=== PATIENT | male | born 1970 | race Caucasian/White ===

== ENCOUNTER 2019-05-28 17:26 | Emergency (ER) | payer OTHER ==
[~2019-05-28] VITALS: Ht 185.4 cm; Wt 169.6 kg
[~2019-05-28 17:26] MED LIST: Z DILTIAZEM PO
--- NOTE | 2019-05-28 18:19 | NUR ---
US CALLED 45MIN ETA,
--- NOTE | 2019-05-28 18:41 | NUR ---
REPORT TO PETER HERNÁNDEZ
--- NOTE | 2019-05-28 19:58 | Diagnostic Imaging Report ---
EXAM: Left Lower Extremity Duplex Ultrasound INDICATION: Leg redness ^20190528 ^1920 COMPARISON: None TECHNIQUE: Hutchinson scale, color Doppler and spectral waveform analysis of the left lower extremity deep venous system was performed. FINDINGS: Common Femoral: Fully compressible with normal spontaneous waveforms. Proximal Greater Saphenous: Fully compressible. Femoral: Fully compressible with normal spontaneous waveforms. Normal response to augmentation. Proximal Deep Femoral: Normal spontaneous waveforms. Popliteal: Fully compressible with normal spontaneous waveforms. Other: Below the knee over the anterior delacruz there are several subcutaneous avascular well-defined fluid collections. Each of these collections measures approximately 5 to 6 mm diameter. IMPRESSION: 1. No evidence of deep venous thrombosis above the left calf. 2. Subcutaneous rounded avascular fluid collections below the knee in the anterior soft tissues of the leg may represent manifestations of edema. In the proper clinical setting, these may represent cellulitis or phlegmonous collections. Signed by: Dr. Kaden Paez M.D. on 05/28/2019 7:54 PM
[2019-05-28] MEDS ORDERED: NAPROSYN500 MG PO (20:11)
--- OUTSIDE RECORDS SUMMARY | 2019-05-30 14:00 | XMS REPORT | Encounter Summary ---
Author Organization Unknown Address [address] [place] [address] Phone [phone] Care Team Providers Care Review Consultant Name Role Phone Dr. Inder Castellanos 3 [phone] Reason for Visit Hypertensive disorder Instructions 1. Hypertensive disorder Cartia XT 240 mg capsule,extended release electrocardiogram 2. Hyperlipidemia CMP, serum or plasma lipid panel, serum high cholesterol: care instructions 3. Immunization 4. Electrocardiogram abnormal cardiology referral - *Please call the patient and make an appointment* PLEASE SEND BACK CONSULT NOTES TO [phone] 5. Body mass index 40+ - severely obese body mass index: care instructions learning about healthy weight Discussion Note: None recorded. Plan of Care Reminders Provider Appointments Return to Office on or around 06/25/2019 Inder Leslie MD Lab CMP, Serum or Plasma 12/23/2018 [facility] Lipid Panel, Serum 12/23/2018 [facility] Referral Cardiology Referral 12/23/2018 Guillermo Yadav MD Procedures None recorded. Surgeries None recorded. Imaging Electrocardiogram 12/23/2018 [facility] ([facility] [place] Medications Name Start Date Cartia XT 240 mg capsule,extended release Take 2 capsules every day by oral route for 90 days. Medications Administered None recorded. Vitals Height Weight BMI Blood Pressure 6 ft 1 in 363 lbs 47.9 kg/m2 (1) 158/98 mm[Hg] (2) 136/84 mm[Hg] Lab Results Date Name Specimen Result Interpretation Description Value Range Status Address Electrocardiogram No observation recorded. [facility] ([facility] [place]: [address] [place] [address] Allergies Code Code System Name Reaction Severity Status Onset NKDA Problems Name Status Onset Date Source Lipoma (Clinical) Active 11/04/2016 Hypertensive Disorder Active 11/04/2016 Chronic Back Pain Active 11/04/2016 Mixed Hyperlipidemia Active 10/31/2017 Body Mass Index 40+ - Severely Obese Active 10/31/2017 Procedures Date Name Performed by 08/09/2016 Dental Surgery Procedure Information not available 06/11/2011 Cholecystectomy (Gall Bladder Removal) Information not available 12/23/2018 Electrocardiogram [facility] ([facility] [place] [address] [place] [address] (Work Place) Vaccine List None recorded. Social History Smoking Status Former Smoker (1/2 PPD) Past Encounters 12/23/2018 Hypertensive Disorder; Hyperlipidemia; Immunization; Electrocardiogram Abnormal; Body Mass Index 40+ - Severely Obese Inder Leslie MD: [address] [place] [address], Ph. History of Present Illness Note:F/u on htn and HLD. Needs refills. Non compliant with meds (ran out of cartia 2 days ago). Non compliant with diet or exercise. Not checking BPs at home. No side effects with the medication. No new concerns. Review of Systems Comprehensive General Adult ROS Reported By: Patient Constitutional: Constitutional: no fever Eyes: Eyes: no vision change ENMT: Ears: no ear pain. Nose: no sinus problems. Mouth/Throat: no sore throat Cardiovascular: Cardiovascular: no chest pain, no palpitations, no lightheadedness Respiratory: Respiratory: no cough, no wheezing, no shortness of breath Gastrointestinal: Gastrointestinal: no abdominal pain, no nausea, no vomiting, no constipation, no diarrhea Musculoskeletal: Musculoskeletal: no muscle aches, no swelling in the extremities Integumentary: Skin: no rashes Neurologic: Neurologic: no loss of consciousness, no headaches Psychiatric: Psych: no depression, no alcohol abuse, no anxiety, no suicidal thoughts Endocrine: Endocrine: no fatigue Physical Exam General Adult Exam (male) Reported By: Patient Constitutional: General Appearance: healthy-appearing, morbidly obese. Level of Distress: NAD. Ambulation: ambulating normally Psychiatric: Insight: good judgement. Mental Status: active and alert, normal mood, normal affect. Orientation: to time, to place, to person. Memory: recent memory normal, remote memory normal Eyes: Lids and Conjunctivae: non-injected, no discharge ENMT: Ears: TMs clear. Nose: no sinus tenderness. Lips, Teeth, and Gums: no mouth or lip ulcers. Oropharynx: moist mucous membranes Neck: Neck: supple, trachea midline. Thyroid: no enlargement, non-tender Lungs: Auscultation: breath sounds normal Cardiovascular: Heart Auscultation: RRR, normal S1, normal S2, no murmurs. Neck vessels: no carotid bruits Abdomen: Inspection and Palpation: soft, non-distended, no tenderness, no guarding Musculoskeletal:: Motor Strength and Tone: normal, normal tone. Joints, Bones, and Muscles: normal movement of all extremities. Extremities: no edema Neurologic: Gait and Station: normal gait. Cranial Nerves: grossly intact. Coordination and Cerebellum: no tremor Skin: Inspection and palpation: no rash, no lesions
--- OUTSIDE RECORDS SUMMARY | 2019-05-30 14:00 | XMS REPORT | Encounter Summary ---
Author Organization Unknown Address [address] [place] [address] Phone [phone] Care Team Providers Care Sewer Pipe Press Operator Name Role Phone Dr. Inder Castellanos 3 [phone] Reason for Visit Hypertensive disorder Instructions 1. Hypertensive disorder Cartia XT 240 mg capsule,extended release electrocardiogram 2. Hyperlipidemia CMP, serum or plasma lipid panel, serum high cholesterol: care instructions 3. Immunization 4. Electrocardiogram abnormal cardiology referral - *Please call the patient and make an appointment* PLEASE SEND BACK CONSULT NOTES TO [phone] 5. Body mass index 40+ - severely obese body mass index: care instructions learning about healthy weight Discussion Note: None recorded. Plan of Care Reminders Provider Appointments Return to Office on or around 06/25/2019 Inder Leslie MD Lab CMP, Serum or Plasma 12/23/2018 [facility] Laboratory Lipid Panel, Serum 12/23/2018 [facility] Laboratory Referral Cardiology Referral 12/23/2018 Guillermo Yadav MD Procedures None recorded. Surgeries None recorded. Imaging Electrocardiogram 12/23/2018 [facility] ([facility]) [place] Medications Name Start Date Cartia XT 240 mg capsule,extended release Take 2 capsules every day by oral route for 90 days. Medications Administered None recorded. Vitals Height Weight BMI Blood Pressure 6 ft 1 in 363 lbs 47.9 kg/m2 (1) 158/98 mm[Hg] (2) 136/84 mm[Hg] Lab Results Date Name Specimen Result Interpretation Description Value Range Status Address Electrocardiogram No observation recorded. [facility] ([facility]) [place]: [address] [place] [address] Allergies Code Code System Name Reaction Severity [...] Bladder Removal) Information not available 12/23/2018 Electrocardiogram [facility] ([facility] [place] [address] [place] [address] (Work Place) Vaccine List None recorded. Social History Smoking Status Former Smoker (1/2 PPD) Past Encounters 12/23/2018 Hypertensive Disorder; Hyperlipidemia; Immunization; Electrocardiogram Abnormal; Body Mass Index 40+ - Severely Obese Inder Leslie MD: [address] [place] [address], Ph. History of Present Illness Note:F/u on htn and HLD. Needs refills. Non compliant with meds (ran out of cartia 2 days ago). Non compliant with diet or exercise. Not checking BPs at home. No side effects with medication. No new concerns. Review of Systems [...]
--- OUTSIDE RECORDS SUMMARY | 2019-05-30 14:00 | XMS REPORT ---
Author Author [facility] Address Unknown Phone Unavailable Care Team Providers Care Spinning Doffer Name Role Phone JOE FINK Unavailable Unavailable Problems This patient has no known problems. Allergies, Adverse Reactions, Alerts This patient has no known allergies or adverse reactions. Medications This patient has no known medications. Results Test Description Test Time Test Comments Text Results Atomic Results Result Comments LOW EXT VEINS LIMITED UNI 2019-05-28 19:50:00 [place] [id number] [place] [address] Patient Name: LIYA BENITEZ MR #: [id number] : 1970 Age/Sex: 48/M Req #: [id number] Adm Physician: Ordered by: JOE FINK MD Report #: [id number] Location: [facility] Room/Bed: Procedure: [id number] HOPD/US LOW EXT VEINS LIMITED UNI Exam Date: 05/28/19 Exam Time: 1919 REPORT STATUS: Signed EXAM: Left Lower Extremity Duplex Ultrasound INDICATION: Leg redness [id number] COMPARISON: None TECHNIQUE: Hutchinson scale, color Doppler and spectral waveform analysis of the left lower extremity deep venous system was performed. FINDINGS: Common Femoral: Fully compressible with normal spontaneous waveforms. Proximal Greater Saphenous: Fully compressible. Femoral: Fully compressible with normal spontaneous waveforms. Normal response to augmentation. Proximal Deep Femoral: Normal spontaneous waveforms. Popliteal: Fully compressible with normal spontaneous waveforms. Other: Below the knee over the anterior delacruz there are several subcutaneous avascular well- defined fluid collections. Each of these collections measures approximately 5 to 6 mm diameter. IMPRESSION: 1. No evidence of deep venous thrombosis above the left calf. 2. Subcutaneous rounded avascular fluid collections below the knee in the anterior soft tissues of the leg may r epresent manifestations of edema. In the proper clinical setting, these may represent cellulitis or phlegmonous collections. Signed by: Dr. Michael Cobb M.D. on 05/28/2019 7:54 PM Dictated By: MICHAEL COBB MD 53 Transcribed By: MIMI on 05/28/191953 COPY TO: JOE FINK MD
--- OUTSIDE RECORDS SUMMARY | 2019-05-30 14:00 | XMS REPORT | Encounter Summary ---
Author Organization Unknown Address [address] [place] [address] Phone [phone] Care Team Providers Care Health Information Managers Name Role Phone Dr. Inder Castellanos 3 [phone] Reason for Visit Hypertensive disorder; rash Instructions 1. Herpes zoster valacyclovir 1 gram tablet prednisone 20 mg tablet 2. Hypertensive disorder diltiazem CD 360 mg capsule,extended release 24 hr 3. Influenza vaccination declined 4. Body mass index 40+ - severely obese body mass index: care instructions learning about healthy weight Discussion Note: None recorded. Plan of Care Reminders Provider Appointments None recorded. Lab None recorded. Referral None recorded. Procedures None recorded. Surgeries None recorded. Imaging None recorded. Medications Name Start Date diltiazem CD 360 mg capsule,extended release 24 hr Take 1 capsule twice a day by oral route for 30 days. prednisone 20 mg tablet Take 2 tablets every day by oral route for 5 days. valacyclovir 1 gram tablet Take 1 tablet every 12 hours by oral route for 7 days. Medications Administered None recorded. Vitals Height Weight BMI Blood Pressure 6 ft 1 in 369.4 lbs 48.7 kg/m2 140/88 mm[Hg] Results Lab Results None recorded. Allergies Code Code System Name Reaction Severity Status Onset NKDA Problems Name Status Onset Date Source Lipoma (Clinical) Active 11/04/2016 Hypertensive Disorder Active 11/04/2016 Chronic Back Pain Active 11/04/2016 Mixed Hyperlipidemia Active 10/31/2017 Body Mass Index 40+ - Severely Obese Active 10/31/2017 Procedures Date Name Performed by 08/09/2016 Dental Surgery Procedure Information not available 06/11/2011 Cholecystectomy (Gall Bladder Removal) Information not available Vaccine List None recorded. Social History Tobacco Smoking Status Former Smoker (1/2 PPD) Past Encounters 05/19/2019 Herpes Zoster; Hypertensive Disorder; Influenza Vaccination Declined; Body Mass Index 40+ - Severely Obese Leroy Schaefer, DO: [facility] [place] [address], Ph. History of Present Illness Note:1) RASH<div>- first noticed small bump that started 5 days ago on corner of left eye. That lesion resolved but new rash appear on left shoulder and left upper back. Rash has red base with elevated bumps. It is painful and itchy. Has not tried OTC medication. Denies prior history of shingles but chicken pox as kid. <div>
</div><div>2) HTN
- current med(s): Diltiazem CD 360mg
- medication compliance: {{daily*|somewhat daily|none}}
- home BP range: {{none#|>200|180s|170s|160s|150s|140s|130s|120s|110s|100s|90s|80s|70s}}
- adverse reactions: {{yes|no*}}
- diet and exercise: {{yes|no*}}
- Denies: {{HAs, CP, SOB, LE Swelling #|HAs|CP|SOB|acute visual changes|leg swel ling|none}}
- Endorses: {{HAs|CP|SOB|acute visual changes|leg swelling|none*}}

</div></div> Review of Systems Comprehensive General Adult ROS Reported By: Patient Constitutional: Constitutional: no fever Cardiovascular: Cardiovascular: no chest pain, no shortness of breath when walking Respiratory: Respiratory: no cough, no wheezing, no shortness of breath Gastrointestinal: Gastrointestinal: no abdominal pain, no nausea, no vomiting, no constipation, no diarrhea Musculoskeletal: Musculoskeletal: no muscle aches, no muscle weakness, no arthralgias/joint pain, no swelling in the extremities Integumentary: Skin: rash Physical Exam General Adult Exam (male) Reported By: Patient Constitutional: General Appearance: healthy-appearing, well-developed, morbidly obese. Level of Distress: NAD. Ambulation: ambulating normally Cardiovascular: Heart Auscultation: RRR, normal S1, normal S2, no murmurs, no rubs, no gallops Abdomen: Bowel Sounds: normal. Inspection and Palpation: soft, non-distended, no tenderness, no guarding Musculoskeletal:: Motor Strength and Tone: normal, normal tone. Joints, Bones, and Muscles: normal movement of all extremities. Extremities: no edema Skin: Inspection and palpation: rash, lesion"
== END 2019-05-28 20:33 | disposition home or self-care (01) ==
LOC: FSED 17:26
DX: M79.605 Pain in left leg (principal); I80.02 Phlebitis and thrombophlebitis of superficial vessels of left lower extremity
CPT/HCPCS: 93971; 99283

== ENCOUNTER → 2021-12-30 | Day surgery (SDC) | payer OTHER ==
[~2021-12-30] MED LIST changes: +BP MED PO; +GLUCAGON FOR INJ 1 MG VIAL ONE; +HYOSCYAMINE SULFATE 0.5 MG/ML INJ ONE; +LIDOCAINE HCL 2% LOCAL INJ 5 ML SDV VIAL INJ ONE; +NAPROSYN500 MG PO; +ONDANSETRON HCL INJ 2MG/ML 2ML 2 MG/ML VIAL ONE; +PROPOFOL IV EMULSION 10 MG/ML 20 ML VIAL ONE
[2021-12-30 10:20] VITALS: BP 107/63
== END | disposition home or self-care (01) ==
LOC: OR 08:02
PROVIDERS: ATTEND Internal Medicine Gastroenterology
DX: R19.5 Other fecal abnormalities (principal); D12.0 Benign neoplasm of cecum; D12.3 Benign neoplasm of transverse colon; K64.8 Other hemorrhoids; Z71.3 Dietary counseling and surveillance; I10 Essential (primary) hypertension; E66.01 Morbid (severe) obesity due to excess calories; Z01.810 Encounter for preprocedural cardiovascular examination; Z01.812 Encounter for preprocedural laboratory examination; Z20.822 Contact with and (suspected) exposure to COVID-19; Z79.899 Other long term (current) drug therapy; Z68.41 Body mass index [BMI] 40.0-44.9, adult; Z86.16 Personal history of COVID-19
CPT/HCPCS: 0223U; 36415; 45378; 45384; 45385; 93005; J1610; J1980; J2001; J2405